=== PATIENT | female | born 2000 | race Caucasian/White ===

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

== ENCOUNTER 2019-12-08 19:21 | Observation (INO) | payer BC ==
[~2019-12-08] VITALS: Ht 154.9 cm; Wt 64.6 kg
[~2019-12-08 19:21] MED LIST: BIRTH CONTROL PO
[2019-12-08 20:36] LABS: BASO # 0.1 (0.0-0.2); BASO % 0.4 % (0.0-2.0); EOS # 0.1 (0.0-0.7); EOS % 0.8 % (0-4.0); GRAN # 11.2 (1.4-6.5); GRAN % 73.5 % (42.2-75.2); HEMATOCRIT 37.2 % (35.0-45.0); LYMPH # 2.9 (1.2-3.4); LYMPH % 18.9 % (20.0-51.0); MEAN CELL VOLUME 85 fl (80.0-95.0); MEAN CORPUSCULAR HEMOGLOBIN 30 pg (26.0-32.0); MEAN CORPUSCULAR HGB CONC 35 g/dl (33.0-37.0); MEAN PLATELET VOLUME 9.6 fl (7.4-10.4); MONO # 0.9 (0.1-0.6); MONO % 5.9 % (1.7-9.3); PLATELET COUNT 352 K/mm3 (130-400); RED BLOOD COUNT 4.37 M/mm3 (4.10-5.30); REDCELL DISTRIBUTION WIDTH-CV 12.2 % (11.5-14.5)
[2019-12-08 21:02] LABS: ALBUMIN 4.4 gm/dL (3.5-5.0); CALCIUM 9.2 mg/dL (8.4-10.2); CREATININE, serum 0.88 (0.52-1.25); POTASSIUM 3.7 mmol/L (3.4-5.0); TOTAL PROTEIN 8.1 gm/dL (6.4-8.2)
[2019-12-08] MEDS ORDERED: LEXAPRO 10MG10 MG PO (23:32)
[2019-12-09 00:52] VITALS: BP 119/69; PULSE 87; TEMP 98
[2019-12-09] MEDS ORDERED: LOESTRIN 1/20 28 DAY PO (01:04)
--- NOTE | 2019-12-09 01:14 | NUR ---
Pt. arrived to the floor via wheelchair. Pt. is A&OX3, assessment complete. INT to lt. ac patent. Pt. reports abd. pain at a 3 on pain scale at this time. Pt. denies further needs, call light within reach.
[2019-12-09 05:06] VITALS: BP 107/49; PULSE 73; TEMP 98.7
[2019-12-09 05:59] LABS: BASO % 0.5 % (0.0-2.0); EOS # 0.1 (0.0-0.7); GRAN # 4.5 (1.4-6.5); GRAN % 58.4 % (42.2-75.2); HEMOGLOBIN 11.9 g/dl (12.0-15.0); LYMPH # 2.4 (1.2-3.4); LYMPH % 30.8 % (20.0-51.0); MEAN CELL VOLUME 86 fl (80.0-95.0); MEAN CORPUSCULAR HEMOGLOBIN 30 pg (26.0-32.0); MEAN CORPUSCULAR HGB CONC 34 g/dl (33.0-37.0); MEAN PLATELET VOLUME 9.8 fl (7.4-10.4); MONO # 0.7 (0.1-0.6); PLATELET COUNT 317 K/mm3 (130-400); RED BLOOD COUNT 4.04 M/mm3 (4.10-5.30); REDCELL DISTRIBUTION WIDTH-CV 12.4 % (11.5-14.5)
[2019-12-09 06:04] LABS: HEMATOCRIT 34.7 % (35.0-45.0)
[2019-12-09 06:09] LABS: CALCIUM 8.5 mg/dL (8.4-10.2); CREATININE, serum 0.67 (0.52-1.25)
[2019-12-09 07:23] VITALS: BP 107/68; PULSE 61; TEMP 98.6
--- NOTE | 2019-12-09 09:20 | NUR ---
SHAI met with the patient and her boyfriend, Ryne Pinedo (ph#[phone]), to discuss discharge plan. The patient lives in [place] with Ryne. She reports independence with ADLs and does not have any DME. The patient's PCP is Dr. Vignesh Osborn and she receives her medications at [facility]. She reports no difficulties obtaining her meds. The patient's next of kin is her parents: Zahra and Lalit Redd. They live in [place]. The patient plans to return home with her boyfriend upon discharge. No additional needs at this time.
--- NOTE | 2019-12-09 10:19 | NUR ---
Dr Pruitt here to see patient.
--- NOTE | 2019-12-09 10:30 | NUR ---
Patient alert and oriented, answers questions appropriately. See assessment. Abdomen soft, non distended. Bowel sounds active x4 quads. +Flatus. Tenderness noted to LUQ with palpation. Slight bruising noted to LUQ. No other c/o at this time.
--- NOTE | 2019-12-09 11:54 | NUR ---
Discharge instructions reviewed with patient, verbalized understanding. Discharged via wheelchair to auto/home with family at 1145.
== END 2019-12-09 11:45 | disposition home or self-care (01) ==
LOC: COL.ER 19:21 → SURG 23:07
PROVIDERS: Emergency Medicine; ADMIT Surgery
DX: S30.1XXA Contusion of abdominal wall, initial encounter (principal); V80.010A Animal-rider injured by fall from or being thrown from horse in noncollision accident, initial encounter; Y92.9 Unspecified place or not applicable; Y99.9 Unspecified external cause status; F19.90 Other psychoactive substance use, unspecified, uncomplicated; Z90.89 Acquired absence of other organs; Z88.0 Allergy status to penicillin
CPT/HCPCS: G0378; J1170; J1885; J2405; J7030; J7120; Q9967